=== PATIENT | female | born 1985 | race Caucasian/White ===

== ENCOUNTER 2021-01-19 12:59 | Inpatient (IN) | payer BC, OTHER ==
[2021-01-19] MEDS ORDERED: PANTOPRAZOLE 40 MG/10 ML VIAL IVP STA (13:28)
--- NOTE | 2021-01-19 13:34 | ED ---
General Adult HPI - General Chief complaint: Recheck/Abnormal Lab/Rx Stated complaint: Low hemoglobin,sent by pcp Time Seen by Provider: 01/19/21 13:12 Source: patient, RN notes reviewed Mode of arrival: ambulatory Limitations: no limitations - History of Present Illness Initial comments: Patient is a pleasant 35-year-old female presenting to the emergency department with concerns for anemia. Patient did have similar symptoms over a year ago secondary to iron deficiency anemia and heavy menses. Patient denies any black or bleeding from the rectum. Patient has had increased fatigue progressed over the past week. Patient has associated palpitations. Patient does have some mild dyspnea on exertion only. Patient did have outpatient blood work done with hemoglobin of the level of 4. - Related Data Home Medications Medication Instructions Recorded Confirmed Drospirenone-Ee 1 tab PO PC-SUPPER 01/19/21 01/19/21 Allergies Allergy/AdvReac Type Severity Reaction Status Date / Time No Known Allergies Allergy Verified 01/19/21 14:19 Review of Systems ROS Statement: Those systems with pertinent positive or pertinent negative responses have been documented in the HPI. ROS Other: All systems not noted in ROS Statement are negative. Constitutional: Denies: fever Eyes: Denies: eye pain ENT: Denies: ear pain Respiratory: Reports: as per HPI. Denies: cough Cardiovascular: Denies: chest pain Endocrine: Reports: fatigue Gastrointestinal: Denies: abdominal pain, melena, hematochezia Genitourinary: Denies: dysuria Musculoskeletal: Denies: back pain Skin: Denies: rash Neurological: Denies: weakness Past Medical History Past Medical History: Blood Disorder Additional Past Medical History / Comment(s): Heart Murmur. IRION DEFIECIENCY ANEMIA. History of Any Multi-Drug Resistant Organisms: None Reported Past Surgical History: No Surgical Hx Reported Past Anesthesia/Blood Transfusion Reactions: No Reported Reaction Past Psychological History: No Psychological Hx Reported Smoking Status: Never smoker Past Alcohol Use History: Occasional Past Drug Use History: None Reported - Past Family History Mother Family Medical History: Diabetes Mellitus Father History Unknown: Yes General Exam Limitations: no limitations General appearance: alert, in no apparent distress Head exam: Present: atraumatic, normocephalic Eye exam: Present: other (Pale conjunctiva) Neck exam: Present: normal inspection Respiratory exam: Present: normal lung sounds bilaterally Cardiovascular Exam: Present: tachycardia GI/Abdominal exam: Present: soft. Absent: tenderness Extremities exam: Present: normal inspection Neurological exam: Present: alert Psychiatric exam: Present: normal affect, normal mood Skin exam: Present: normal color Course Vital Signs 01/19/21 01/19/21 13:03 14:08 Temperature 98.1 F Pulse Rate 136 H Respiratory 24 18 Rate Blood Pressure 140/77 O2 Sat by Pulse 100 Oximetry EKG Findings - EKG Comments: EKG Findings:: Sinus tachycardia with rate of 129. NH 162. QRS 62. QT 278. QTC 47. Normal axis. Q waves V1 and V2. No acute ST change. Medical Decision Making - Medical Decision Making Patient reevaluated. Patient updated on results and plan. Case was discussed in detail with Dr. Fan, who will admit her patient. She would like GI consult. - Lab Data Result diagrams: 01/19/21 13:30 01/19/21 13:30 Lab Results 01/19/21 01/19/21 01/19/21 Range/Units 13:30 13:30 13:30 WBC 19.9 H (3.8-10.6) k/uL RBC 2.74 L (3.80-5.40) m/uL Hgb 3.9 L* (11.4-16.0) gm/dL Hct 15.8 L* (34.0-46.0) % MCV 57.5 L (80.0-100.0) fL MCH 14.1 L (25.0-35.0) pg MCHC 24.5 L (31.0-37.0) g/dL RDW 32.7 H (11.5-15.5) % Plt Count 1007 H* (150-450) k/uL MPV 6.7 Hypochromasia Marked Poikilocytosis Moderate Anisocytosis Marked Microcytosis Marked Sodium 133 L (137-145) mmol/L Potassium 5.0 (3.5-5.1) mmol/L Chloride 103 (98-107) mmol/L Carbon Dioxide 19 L (22-30) mmol/L Anion Gap 11 mmol/L BUN 13 (7-17) mg/dL Creatinine 0.96 (0.52-1.04) mg/dL Est GFR (CKD-EPI)AfAm 87 (>60 ml/min/1.73 sqM) Est GFR (CKD-EPI)NonAf 76 (>60 ml/min/1.73 sqM) Glucose 139 H (74-99) mg/dL Calcium 9.3 (8.4-10.2) mg/dL Total Bilirubin 0.3 (0.2-1.3) mg/dL AST 31 (14-36) U/L ALT 21 (4-34) U/L Alkaline Phosphatase 55 (38-126) U/L Total Protein 7.2 (6.3-8.2) g/dL Albumin 4.1 (3.5-5.0) g/dL Stool Occult Blood (Negative) Blood Type A Positive Blood Type Recheck A Pos Bld Type Recheck Status No Antibody Screen NEGATIVE Crossmatch See Detail Spec Expiration Date 01/22/2021 - 232901/19/21 Range/Units 13:37 WBC (3.8-10.6) k/uL RBC (3.80-5.40) m/uL Hgb (11.4-16.0) gm/dL Hct (34.0-46.0) % MCV (80.0-100.0) fL MCH (25.0-35.0) pg MCHC (31.0-37.0) g/dL RDW (11.5-15.5) % Plt Count (150-450) k/uL MPV Hypochromasia Poikilocytosis Anisocytosis Microcytosis Sodium (137-145) mmol/L Potassium (3.5-5.1) mmol/L Chloride (98-107) mmol/L Carbon Dioxide (22-30) mmol/L Anion Gap mmol/L BUN (7-17) mg/dL Creatinine (0.52-1.04) mg/dL Est GFR (CKD-EPI)AfAm (>60 ml/min/1.73 sqM) Est GFR (CKD-EPI)NonAf (>60 ml/min/1.73 sqM) Glucose (74-99) mg/dL Calcium (8.4-10.2) mg/dL Total Bilirubin (0.2-1.3) mg/dL AST (14-36) U/L ALT (4-34) U/L Alkaline Phosphatase (38-126) U/L Total Protein (6.3-8.2) g/dL Albumin (3.5-5.0) g/dL Stool Occult Blood Negative (Negative) Blood Type Blood Type Recheck Bld Type Recheck Status Antibody Screen Crossmatch Spec Expiration Date Critical Care Time Critical Care Time: Yes Total Critical Care Time: 32 Disposition Clinical Impression: Symptomatic anemia Disposition: ADMITTED IP TO THIS HOSP Is patient prescribed a controlled substance at d/c from ED?: No Referrals: Belia Swan MD [Primary Care Provider] - 1-2 days Decision Time: 14:35
[2021-01-19 14:00] LABS: Albumin 4.1 g/dL (3.5-5.0); Calcium 9.3 mg/dL (8.4-10.2); Total Bilirubin 0.3 mg/dL (0.2-1.3); Total Protein 7.2 g/dL (6.3-8.2)
[2021-01-19 14:07] LABS: Anisocytosis Marked; Hypochromasia Marked; MCH 14.1 pg (25.0-35.0); MCHC 24.5 g/dL (31.0-37.0); MCV 57.5 fL (80.0-100.0); Mean Platelet Volume 6.7; Microcytosis Marked; Poikilocytosis Moderate; RBC 2.74 m/uL (3.80-5.40)
[2021-01-19 14:14] LABS: RDW 32.7 % (11.5-15.5)
[2021-01-19 14:16] LABS: INR 0.9 (<1.2); Prothrombin Time 10.2 sec (9.0-12.0)
[2021-01-19 14:19] LABS: HCT 15.8 % (34.0-46.0); HGB 3.9 gm/dL (11.4-16.0); Platelet Count 1007 k/uL (150-450)
[2021-01-19 14:35] LABS: Partial Thromboplastin Time 19.5 sec (22.0-30.0)
[2021-01-19] MEDS ORDERED: NALOXONE 0.4 MG/ML 1 ML VIAL IV PRN (14:35)
[2021-01-19 14:44] LABS: Band Neutrophils % 1 %; Eosinophils # (M) 0.39 k/uL (0-0.7); Lymphocytes # (M) 2.15 k/uL (1.0-4.8); Monocytes # (M) 1.37 k/uL (0-1.0); Neutrophils % (M) 80 %; Nucleated Red Blood Cells 2 /100 WBC (0-0); Total Cells Counted 200; WBC 19.5 k/uL (3.8-10.6)
[2021-01-19 14:45] LABS: Mixed Population RBC Present
[2021-01-19] MEDS ORDERED: SODIUM CHLORIDE 0.9% 1,000 ML IV SCH (14:45)
[2021-01-19 14:50] LABS: RBC Fragments Present; Tear Drop Cells Present
--- NOTE | 2021-01-19 18:13 | P.HPIM ---
History of Present Illness H&P Date: 01/19/21 55 years old -[place] female patient of mine with past medical history of iron deficiency anemia who has seen Dr. Borrego as outpatient for iron deficiency anemia comes in after found to have a hemoglobin of 4 as outpatient labs. Patient does document on going weakness and palpitation . She does get easily tired at work and has to rest every 2 hour. Patient was last seen 6 month ago and had recovered well with increase in hemoglobin. She was seen by Dr. borrego and detailed workup was done. Not sure if bone marrow biopsy was performed. Fecal occult obtained in the ER was negative. Vitals in the ER suggested temp of 97.8 pulse 109 respiratory rate 18 blood pressure 115/60 oxygen saturation 100% on 2 L EKG comes in sinus tachycardia. That suggest a WBC of 19.5 hemoglobin 3.9 platelet 1007 2 units of PRBC blood ordered. Oncology consulted. no source of anemia noted. Would benefit from endoscopy as inpatient. GI consulted Review of Systems Constitutional: Denies chills, Denies fever, endorses lethargy Denies weight loss Eyes: denies decreased vision, denies diplopia, denies discharge, denies pain Ears: deny: decreased hearing Ears, nose, mouth and throat: Denies dental pain, Denies headache, Denies nasal discharge, Denies nose pain Cardiovascular: Denies chest pain, Denies decreased exercise tolerance, Denies edema, Denies high blood pressure, Denies irregular heart beat, Denies palpitations, Denies paroxysmal nocturnal dyspnea, Denies rapid heart beat, Denies shortness of breath Respiratory: Denies congestion, Denies cough, Denies cough with sputum, Denies dyspnea, Denies home oxygen, Denies wheezing Gastrointestinal: Denies abdominal pain, Denies change in bowel habits, Denies coffee ground emesis, Denies early satiety, Denies excessive gas, Denies heartburn, Denies hematemesis, Denies hematochezia, Denies loss of appetite, Denies nausea, Denies vomiting Genitourinary: Denies dysuria, Denies flank pain, Denies kidney stones, Denies menorrhagia, Denies urgency, Denies urinary frequency Musculoskeletal: Denies gait dysfunction, Denies limitation of motion, Denies morning stiffness, Denies muscle cramps Integumentary: Denies rash, Denies wounds, Denies brittle nails, Denies change in hair/nails, Denies darkening of skin Neurological: Denies balance difficulties, Denies change in speech, Denies double vision, Denies gait dysfunction, Denies loss of vision, Denies motor disturbance, Denies numbness, Denies paralysis, Denies paresthesias, Denies seizures Psychiatric: Denies anxiety, Denies depression Endocrine: Denies excessive sweating, Denies excessive thirst, Denies high blood sugars, Denies palpitations endorses irregular menstrual cycle Hematologic/Lymphatic: Denies easy bruising, Denies lymphadenopathy Past Medical History Past Medical History: Blood Disorder Additional Past Medical History / Comment(s): Heart Murmur. IRION DEFIECIENCY ANEMIA. History of Any Multi-Drug Resistant Organisms: None Reported Past Surgical History: No Surgical Hx Reported Past Anesthesia/Blood Transfusion Reactions: No Reported Reaction Past Psychological History: No Psychological Hx Reported Smoking Status: Never smoker Past Alcohol Use History: Occasional Past Drug Use History: None Reported - Past Family History Mother Family Medical History: Diabetes Mellitus Father History Unknown: Yes Medications and Allergies Home Medications Medication Instructions Recorded Confirmed Type Drospirenone-Ee 1 tab PO PC-SUPPER 01/19/21 01/19/21 History Allergies Allergy/AdvReac Type Severity Reaction Status Date / Time No Known Allergies Allergy Verified 01/19/21 14:19 Physical Exam Vitals: Vital Signs Temp Pulse Resp BP Pulse Ox 01/19/21 16:20 99 F 101 H 18 123/68 100 01/19/21 15:50 99.2 F 100 18 116/66 100 01/19/21 15:40 98.1 F 105 H 16 121/64 01/19/21 15:01 99.8 F H 109 H 18 115/60 100 01/19/21 14:08 18 01/19/21 13:03 98.1 F 136 H 24 140/77 100 Intake and Output 01/19/21 01/19/21 01/19/21 06:59 14:59 22:59 Intake Total 0 Balance 0 Intake: Blood Product 0 Rc As-1 Unit 0 [id number] Other: Weight 65.771 kg - Constitutional General appearance: cooperative, no acute distress, obese - EENT Eyes: anicteric sclerae, PERRLA, normal appearance ENT: hearing grossly normal - Neck Neck: no lymphadenopathy, normal ROM, no other, no rigidity, no stridor, no thyromegaly - Respiratory Respiratory: bilateral: CTA, negative: diminished, dullness, rales, rhonchi - Cardiovascular Rhythm: Tachycardic Heart sounds: normal: S1, S2 Abnormal Heart Sounds: no systolic murmur, no diastolic murmur, no rub, no S3 Gallop, no S4 Gallop, no click, no other - Gastrointestinal General gastrointestinal: normal bowel sounds, soft - Integumentary Integumentary: no rash - Neurologic Neurologic: CNII-XII intact - Musculoskeletal Musculoskeletal: gait normal, strength equal bilaterally - Psychiatric Psychiatric: A&O x's 3, appropriate affect Results CBC & Chem 7: 01/19/21 13:30 01/19/21 13:30 Labs: Abnormal Lab Results - Last 24 Hours (Table) 01/19/21 01/19/21 01/19/21 Range/Units 13:30 13:30 13:30 WBC 19.5 H (3.8-10.6) k/uL RBC 2.74 L (3.80-5.40) m/uL Hgb 3.9 L* (11.4-16.0) gm/dL Hct 15.8 L* (34.0-46.0) % MCV 57.5 L (80.0-100.0) fL MCH 14.1 L (25.0-35.0) pg MCHC 24.5 L (31.0-37.0) g/dL RDW 32.7 H (11.5-15.5) % Plt Count 1007 H* (150-450) k/uL Neutrophils # (Manual) 15.70 H (1.3-7.7) k/uL Monocytes # (Manual) 1.37 H (0-1.0) k/uL Nucleated RBCs 2 H (0-0) /100 WBC APTT 19.5 L (22.0-30.0) sec Sodium 133 L (137-145) mmol/L Carbon Dioxide 19 L (22-30) mmol/L Glucose 139 H (74-99) mg/dL Crossmatch 01/19/21 Range/Units 13:30 WBC (3.8-10.6) k/uL RBC (3.80-5.40) m/uL Hgb (11.4-16.0) gm/dL Hct (34.0-46.0) % MCV (80.0-100.0) fL MCH (25.0-35.0) pg MCHC (31.0-37.0) g/dL RDW (11.5-15.5) % Plt Count (150-450) k/uL Neutrophils # (Manual) (1.3-7.7) k/uL Monocytes # (Manual) (0-1.0) k/uL Nucleated RBCs (0-0) /100 WBC APTT (22.0-30.0) sec Sodium (137-145) mmol/L Carbon Dioxide (22-30) mmol/L Glucose (74-99) mg/dL Crossmatch See Detail Thrombosis Risk Factor Assmnt - DVT/VTE Prophylaxis DVT/VTE Prophylaxis: Mechanical Prophylaxis ordered Assessment and Plan Plan: #1 anemia likely iron deficiency anemia rule out underlying myelodysplasia. Rule out GI bleed. Oncology consulted GI consulted. Previous workup as outpatient indicated iron deficiency anemia and patient sees oncology as outpatient. Status post 2 units PRBC. Patient would benefit from an additional 2 units tomorrow morning if hemoglobin less than 7. Hemoglobin electrophoresis is ordered. Family history of anemia present rule out sickle cell anemia pantoprazole 40 mg IV daily patient to stay nothing by mouth #2 leukocytosis repeat CMP tomorrow #3 DVT prophylaxis with mechanical prophylaxis #4 Code status full code #5 GI prophylaxis pantoprazole 40 mg daily Disposition- patient would need 1-2 inpatient nights for stabilization
[2021-01-19 21:44] LABS: Reticulocyte % 3.3 % (0.5-2.0)
[2021-01-19] MEDS: PANTOPRAZOLE 40 MG/10 ML VIAL IV SCH (22:17)
[2021-01-20 00:07] VITALS: RESP 16
[2021-01-20 08:10] LABS: % Iron Saturation 1.64 (12.00-45.00); Iron 9 ug/dL (50-170); Total Iron Binding Capacity 548 ug/dL (228-460)
[2021-01-20 08:24] LABS: Anisocytosis Marked; HCT 29.8 % (34.0-46.0); Hypochromasia Marked; MCH 23.1 pg (25.0-35.0); MCHC 30.5 g/dL (31.0-37.0); Mean Platelet Volume 11.5; Microcytosis Marked; Poikilocytosis Marked; RBC 3.94 m/uL (3.80-5.40)
[2021-01-20 08:25] LABS: RDW 31.2 % (11.5-15.5)
[2021-01-20 08:26] LABS: HGB 9.1 gm/dL (11.4-16.0); MCV 75.6 fL (80.0-100.0); Platelet Count 1090 k/uL (150-450)
[2021-01-20] MEDS: PANTOPRAZOLE 40 MG/10 ML VIAL IV SCH (09:42)
[2021-01-20 10:00] LABS: Band Neutrophils % 2 %; Basophils # (M) 0.37 k/uL (0-0.2); Eosinophils # (M) 0.55 k/uL (0-0.7); Lymphocytes # (M) 2.01 k/uL (1.0-4.8); Metamyelocytes # (M) 0.37 k/uL (0); Metamyelocytes % 2 %; Monocytes # (M) 0.92 k/uL (0-1.0); Myelocytes # (M) 0.18 k/uL (0); Myelocytes % 1 %; Neutrophils % (M) 76 %; Nucleated Red Blood Cells 4 /100 WBC (0-0); Total Cells Counted 200; WBC 18.3 k/uL (3.8-10.6)
[2021-01-20 10:01] LABS: Mixed Population RBC Present
[2021-01-20 10:02] LABS: Large Platelets Present; Polychromasia Present
[2021-01-20 11:28] LABS: Ferritin <0.5 ng/mL (10.0-291.0)
[2021-01-20 11:40] VITALS: BP 130/75; TEMP 98.2
--- NOTE | 2021-01-20 13:51 | P.DS ---
Providers Date of admission: 01/19/21 14:35 Expected date of discharge: 01/20/21 Attending physician: Belia Swan MD Consults: 01/19/21 14:35 Consult Physician Urgent Consulting Provider: Abisai Borrego Consult Reason/Comments: Hematological evaluation and tx Do you want consulting provider notified?: Yes Primary care physician: Belia Swan MD Hospital Course: 55 years old -[place]ian female patient of mine with past medical history of iron deficiency anemia who has seen Dr. Borrego as outpatient for iron deficiency anemia comes in after found to have a hemoglobin of 4 as outpatient labs. Patient does document on going weakness and palpitation . She does get easily tired at work and has to rest every 2 hour. Patient was last seen 6 month ago and had recovered well with increase in hemoglobin. She was seen by Dr. borrego and detailed workup was done. Not sure if bone marrow biopsy was performed. Fecal occult obtained in the ER was negative. Vitals in the ER suggested temp of 97.8 pulse 109 respiratory rate 18 blood pressure 115/60 oxygen saturation 100% on 2 L EKG comes in sinus tachycardia. That suggest a WBC of 19.5 hemoglobin 3.9 platelet 1007 2 units of PRBC blood ordered. Oncology consulted. no source of anemia noted. Would benefit from endoscopy as inpatient. GI consulted 01/20: Patient evaluated at bedside today. Patient received 3 units of PRBC, repeat hemoglobin 9.1, today her WBCs 18.3, platelet count 1090, iron 9, TIBC 548, ferritin <0.5. Stool occult was negative. She reports she is felling better today. Patient is anxious for discharge home. She will have follow-up with hematology for her anemia and also GI for possible endoscopy as outpatient. Patient may also benefit from [employer] consult and pelvic ultrasound. Platelet count and WBCs are still elevated, platelet count is 1090, secondary to her iron deficiency anemia, she will follow-up with hematology for further workup. Discharge diagnoses #1 anemia likely iron deficiency anemia #2 leukocytosis The above impression and plan of care have been discussed and directed by signing physician. Aisha Ellington nurse practitioner acting as scribe for signing physician. Plan - Discharge Summary Discharge Rx Participant: No New Discharge Prescriptions: New Ferrous Sulfate [Feosol] 325 mg PO TID #90 tab Continue Drospirenone-Ee 1 tab PO PC-SUPPER Discharge Medication List Drospirenone-Ee 1 tab PO PC-SUPPER 01/19/21 [History] Ferrous Sulfate [Feosol] 325 mg PO TID #90 tab 01/20/21 [Rx] Follow up Appointment(s)/Referral(s): Belia Swan MD [Primary Care Provider] - 1-2 days Discharge Disposition: HOME SELF-CARE
--- NOTE | 2021-01-20 14:09 | P.CONS ---
History of Present Illness - Reason for Consult Consult date: 01/20/21 hematology evaluation and treatment Requesting physician: Alexei Sabillon - Chief Complaint symptomatic anemia - History of Present Illness Ms. Arndt is a pleasant -[place] female pt of Dr. Swan for Primary Care since 05/29. 05/28/19 CBC showed a hemoglobin of 4.3 with MCV of 53.2 and platelets of 19. WBC and differential were normal. Patient's labs on 06/03/19 s howed iron saturation of 1.37% and ferritin of less than 0.5. WILLIAM 2 mutation testing done was negative. She received 2 units of PRBC and had IV iron. 06/12/19 hemoglobin was 7.7 with platelets 61. She was referred to Dr. Borrego for further workup. She denied any significant medical history or s/s suggestive of insidious disease. She had a history of menstrual cycles lasting about 7-9 days with heavy bleeding especially on the first 2-3 days. She had no history of bleeding, still does not at this time. No history of any use of anticoagulants, antiplatelet agents, or NSAIDs on a regular basis. She was diagnosed with iron deficiency from menorrhagia, plt count was felt to be reactive, due to iron deficiency, from menstrual losses. She had several doses of parenteral iron. She last had a telemed visit 01/27/20, not seen since. At that time she was on oral iron still with good tolerance. [facility] fatigue, tired all the time, very poor energy levels, palpitations. She was noted to have Hgb 3.9 on admit, she is s/p 3 units PRBCs, Hgb 9.1 currently. She states she feels a little better. Iron studies show significant deficiency. She has not been taking oral iron over about a year. She has been on OBC for a year, menses can be heavy at times. She denies any bleeding. Review of Systems 10 point ROS is neg except as stated in HPI Past Medical History Past Medical History: Blood Disorder Additional Past Medical History / Comment(s): iron deficiency anemia, heart murmer History of Any Multi-Drug Resistant Organisms: None Reported Past Surgical History: No Surgical Hx Reported Past Anesthesia/Blood Transfusion Reactions: No Reported Reaction Past Psychological History: No Psychological Hx Reported Smoking Status: Never smoker Past Alcohol Use History: Occasional Past Drug Use History: None Reported - Past Family History Mother Family Medical History: Diabetes Mellitus, Hypertension Father History Unknown: Yes Medications and Allergies Home Medications Medication Instructions Recorded Confirmed Type Drospirenone-Ee 1 tab PO PC-SUPPER 01/19/21 01/19/21 History Ferrous Sulfate [Feosol] 325 mg PO TID #90 tab 01/20/21 Rx Allergies Allergy/AdvReac Type Severity Reaction Status Date / Time No Known Allergies Allergy Verified 01/19/21 14:19 Physical Exam Vitals: Vital Signs Temp Pulse Pulse Resp BP BP Pulse Ox 01/20/21 04:00 98.1 F 79 16 123/69 100 01/20/21 01:26 92 16 01/20/21 00:06 98.1 F 98 16 134/73 98 01/19/21 23:16 97.4 F L 92 18 127/78 100 01/19/21 22:57 97.4 F L 92 18 127/78 100 01/19/21 21:45 98.3 F 70 18 112/74 99 01/19/21 21:33 98.4 F 92 17 120/57 98 01/19/21 21:25 98.4 F 93 18 125/80 100 01/19/21 21:10 18 01/19/21 20:45 98.0 F 84 18 120/72 99 01/19/21 20:15 97.6 F 85 17 117/78 100 01/19/21 20:00 97.8 F 89 19 113/73 01/19/21 19:45 97.7 F 97 16 116/70 01/19/21 19:30 97.6 F 94 18 113/79 100 01/19/21 19:23 97.6 F 94 18 113/79 100 01/19/21 16:20 99 F 101 H 18 123/68 100 01/19/21 15:50 99.2 F 100 18 116/66 100 01/19/21 15:40 98.1 F 105 H 16 121/64 01/19/21 15:01 99.8 F H 109 H 18 115/60 100 01/19/21 14:08 18 01/19/21 13:03 98.1 F 136 H 24 140/77 100 Intake and Output 01/19/21 01/20/21 01/20/21 22:59 06:59 14:59 Intake Total 620 1840 Balance 620 1840 Intake: Oral 600 Blood Product 620 1240 As-1 Unit 310 [id number] Rc As-1 Unit 310 [id number] Rc As-1 Unit 0 310 [id number] Other: Voiding Method Toilet # Voids 2 Weight 65.771 kg 65.7 kg - Constitutional General appearance: average body habitus, cooperative, no acute distress - EENT Eyes: anicteric sclerae, EOMI ENT: hearing grossly normal, normal oropharynx - Neck Neck: no lymphadenopathy - Respiratory Respiratory: bilateral: CTA - Cardiovascular Rhythm: regular Heart sounds: normal: S1, S2 Abnormal Heart Sounds: no systolic murmur, no diastolic murmur, no rub, no S3 Gallop, no S4 Gallop, no click, no other leg Peripheral Edema: bilateral: None - Gastrointestinal General gastrointestinal: no absent bowel sounds, no decreased bowel sounds, no distended, no hepatomegaly, no hyperactive bowel sounds, normal bowel sounds, no organomegaly, no rigid, no scaphoid, soft, no splenomegaly, no tenderness, no umbilical hernia, no ventral hernia - Neurologic Neurologic: CNII-XII intact - Musculoskeletal Musculoskeletal: strength equal bilaterally - Psychiatric Psychiatric: A&O x's 3, appropriate affect, intact judgment & insight Results CBC & Chem 7: 01/20/21 07:16 01/19/21 13:30 Labs: Abnormal Lab Results - Last 24 Hours (Table) 01/19/21 01/19/21 01/19/21 Range/Units 13:30 13:30 13:30 WBC 19.5 H (3.8-10.6) k/uL RBC 2.74 L (3.80-5.40) m/uL Hgb 3.9 L* (11.4-16.0) gm/dL Hct 15.8 L* (34.0-46.0) % MCV 57.5 L (80.0-100.0) fL MCH 14.1 L (25.0-35.0) pg MCHC 24.5 L (31.0-37.0) g/dL RDW 32.7 H (11.5-15.5) % Plt Count 1007 H* (150-450) k/uL Neutrophils # (Manual) 15.70 H (1.3-7.7) k/uL Monocytes # (Manual) 1.37 H (0-1.0) k/uL Nucleated RBCs 2 H (0-0) /100 WBC Retic Count (0.5-2.0) % APTT 19.5 L (22.0-30.0) sec Sodium 133 L (137-145) mmol/L Carbon Dioxide 19 L (22-30) mmol/L Glucose 139 H (74-99) mg/dL Iron (50-170) ug/dL TIBC (228-460) ug/dL % Saturation (12.00-45.00) Crossmatch 01/19/21 01/19/21 01/19/21 Range/Units 13:30 13:30 13:30 WBC (3.8-10.6) k/uL RBC (3.80-5.40) m/uL Hgb (11.4-16.0) gm/dL Hct (34.0-46.0) % MCV (80.0-100.0) fL MCH (25.0-35.0) pg MCHC (31.0-37.0) g/dL RDW (11.5-15.5) % Plt Count (150-450) k/uL Neutrophils # (Manual) (1.3-7.7) k/uL Monocytes # (Manual) (0-1.0) k/uL Nucleated RBCs (0-0) /100 WBC Retic Count 3.3 H (0.5-2.0) % APTT (22.0-30.0) sec Sodium (137-145) mmol/L Carbon Dioxide (22-30) mmol/L Glucose (74-99) mg/dL Iron 9 L (50-170) ug/dL TIBC 548 H (228-460) ug/dL % Saturation 1.64 L (12.00-45.00) Crossmatch See Detail 01/20/21 Range/Units 07:16 WBC 19.0 H (3.8-10.6) k/uL RBC (3.80-5.40) m/uL Hgb 9.1 L D (11.4-16.0) gm/dL Hct 29.8 L (34.0-46.0) % MCV 75.6 L D (80.0-100.0) fL MCH 23.1 L (25.0-35.0) pg MCHC 30.5 L (31.0-37.0) g/dL RDW 31.2 H (11.5-15.5) % Plt Count 1090 H* (150-450) k/uL Neutrophils # (Manual) (1.3-7.7) k/uL Monocytes # (Manual) (0-1.0) k/uL Nucleated RBCs (0-0) /100 WBC Retic Count (0.5-2.0) % APTT (22.0-30.0) sec Sodium (137-145) mmol/L Carbon Dioxide (22-30) mmol/L Glucose (74-99) mg/dL Iron (50-170) ug/dL TIBC (228-460) ug/dL % Saturation (12.00-45.00) Crossmatch Assessment and Plan (1) Microcytic hypochromic anemia Current Visit: Yes Status: Acute Priority: High Code(s): D50.9 - IRON DEFICIENCY ANEMIA, UNSPECIFIED SNOMED Code(s): 38165646 (2) Thrombocythemia Current Visit: Yes Status: Acute Priority: Medium Code(s): D47.3 - ESSENTIAL (HEMORRHAGIC) THROMBOCYTHEMIA SNOMED Code(s): 3317544 Plan: Mirocyctic, hypochromic, iron deficient anemia. Plan for parenteral iron outpt and f/u with Dr. Borrego. Throbocythemia 2/2 iron deficiency. Pt can resume her oral iron as tolerated. Recommend that she needs to continue having CBC monitoring and iron supplementation PRN. Dr. Borrego would like pt work up PN, will plan outpt.
[2021-01-20 14:46] VITALS: PULSE 130
== END 2021-01-20 16:36 | disposition home or self-care (01) | DRG 812 ==
LOC: EC 12:59 → 3SCARD 14:35
PROVIDERS: ADMIT Internal Medicine; ATTEND Internal Medicine
PROC: 30233N1 Transfusion of Nonautologous Red Blood Cells into Peripheral Vein, Percutaneous Approach (ICD-10-PCS; principal; 2021-01-19)
DX: D50.9 Iron deficiency anemia, unspecified (principal); D47.3 Essential (hemorrhagic) thrombocythemia; D53.9 Nutritional anemia, unspecified; D72.829 Elevated white blood cell count, unspecified; N92.0 Excessive and frequent menstruation with regular cycle; Z79.899 Other long term (current) drug therapy; Z82.49 Family history of ischemic heart disease and other diseases of the circulatory system; Z83.2 Family history of diseases of the blood and blood-forming organs and certain disorders involving the immune mechanism; Z83.3 Family history of diabetes mellitus; Z20.822 Contact with and (suspected) exposure to COVID-19
CPT/HCPCS: 36415; 80053; 82272; 82607; 82728; 82747; 83021; 83540; 83550; 83921; 85025; 85045; 85610; 85730; 86850; 86900; 86901; 86920; 87635; 93005; 99285